=== PATIENT | female | born 1945 | race Caucasian/White ===

== ENCOUNTER → 2021-07-30 16:07 | Outpatient (BNVA) | payer MEDICARE, SELFPAY | PROVIDERS: Family Provider Electrodiagnostic Medicine; Visit Provider Registered Nurse Neonatal Intensive Care | DX: N39.0 Urinary tract infection, site not specified (principal) | CPT/HCPCS: 81000 ==

== ENCOUNTER → 2021-08-08 10:57 | Outpatient (BNVA) | payer MEDICARE, SELFPAY | PROVIDERS: Family Provider Electrodiagnostic Medicine; Visit Provider Registered Nurse Neonatal Intensive Care | DX: N39.0 Urinary tract infection, site not specified (principal) | CPT/HCPCS: 81000 ==

== ENCOUNTER → 2021-08-13 16:52 | Outpatient (BNVA) | payer MEDICARE, SELFPAY | PROVIDERS: Family Provider Electrodiagnostic Medicine; Visit Provider Registered Nurse Neonatal Intensive Care | DX: N39.0 Urinary tract infection, site not specified (principal) | CPT/HCPCS: 81000; 87086 ==

== ENCOUNTER 2023-12-07 11:32 | Emergency (ER) | payer MEDICARE, SELFPAY ==
[2023-12-07 11:51] VITALS: BP 128/67; PULSE 89; TEMP 36.8; O2SAT 98
[2023-12-07 13:25] LABS: Basophils # 0.1 10^3/uL (0.0-0.1); Basophils % 0.6 %; Eosinophils # 0.1 10^3/uL (0.0-0.8); Eosinophils % 0.8 %; Hematocrit 31.6 % (36-47); Lymphocytes # 1.4 10^3/uL (0.8-4.8); Lymphocytes % 17.6 %; Mean Corpuscular HGB Conc 30.4 g/dL (30-55); Mean Corpuscular Hemoglobin 24.2 pg (27-33); Mean Corpuscular Volume 79.6 fl (85-98); Monocytes # 0.8 10^3/uL (0.2-0.9); Monocytes % 10.5 %; Neutrophils # 5.57 10^3/uL (1.8-7.7); Neutrophils % 70.1 %; Nucleated Red Blood Cells % 0 %; Platelet Count 595 10^3/cmm (157-399); Red Blood Count 3.97 10^6/uL (3.85-5.65); Red Cell Distribution Width 16.7 % (12.1-15.1); White Blood Count 7.94 10^3/uL (3.29-11.43)
[2023-12-07 13:46] LABS: Alanine Aminotransferase 6 U/L (0-33); Albumin Level 3.8 g/dL (3.5-5.2); Alkaline Phosphatase 99 U/L (35-105); Anion Gap 19.1 (5-19); Aspartate Amino Transferase 12 U/L (0-32); Blood Urea Nitrogen 13 mg/dL (8-23); Carbon Dioxide 23 mmol/L (22-29); Chloride 97 mmol/L (98-107); Creatinine Clr Calc Pharmacy 60.9843; Globulin 3.4 g/dL (1.3-4.6); Glucose 100 mg/dL (65-115); Lipase 19 U/L (13-60); Osmolality Calculated 280 mOsm/kg (285-295); Potassium 4.1 mmol/L (3.5-5.1); Sodium 135 mmol/L (136-145); Total Bilirubin 0.3 mg/dL (0.15-1.2); Total Protein 7.2 g/dL (6.6-8.7)
--- NOTE | 2023-12-07 15:51 | ECG_ITS ---
[facility] Test Date: 2023-12-07 Pat Name: Ching Crenshaw Department: Room: Gender: Female Network Designer: : 1945 Requested By: Lelo Galvin Order Number: [id number] Juju MD: Brad Pennington M.D. Measurements Intervals [place] Rate: 92 P: 53 VA: 136 QRS: 15 QRSD: 118 T: -7 QT: 385 QTc: 477 Interpretive Statements SINUS RHYTHM INDETERMINATE AXIS RIGHT BUNDLE BRANCH BLOCK [120+ ms QRS DURATION, UPRIGHT V1, 40+ ms S IN I/aVL/V4/V5/V6] No previous ECG available for comparison Electronically Signed On 12-08-2023 7:44:26 CDT by Brad Pennington M.D. [email or web address]/store/NU/[id number] f
[2023-12-07 15:53] VITALS: BP 147/76; PULSE 65; RESP 21; O2SAT 99
--- NOTE | 2023-12-07 15:54 | XRR_ITS ---
PROCEDURE INFORMATION: Exam: XR Chest Exam date and time: 12/07/2023 4:26 PM Age: 78 years old Clinical indication: Cough; Patient HX: C/O n/v/d for the past few days. C/O upper abd/chest pain. PT denies any HX of abd issues. PT states she has not had much urine production. PT is a&o at this time with patent airway and even respirations. ; Additional info: Cp TECHNIQUE: Imaging protocol: Radiologic exam of the chest. Views: 1 view. COMPARISON: No relevant prior studies available. FINDINGS: Lungs: Unremarkable. No consolidation. Pleural spaces: Trace right pleural effusion. No pneumothorax is identified. Heart/Mediastinum: Heart size is normal. There is calcified plaque involving the aorta. The aorta appears to be somewhat tortuous. Bones/joints: Unremarkable. XR/XR chest 1V portable [id number] IMPRESSION: 1. Trace right pleural effusion.
[2023-12-07] MEDS: ondansetron 2 mg/ML SDV 2 mL 4 MG IVP (16:01)
[2023-12-07] MEDS: sodium chloride 0.9% 1,000 ML 999 ML IV (16:02)
--- NOTE | 2023-12-07 16:09 | ED_ITS ---
HPI - Nausea/Vomiting/Diarrhea 2 General: Chief complaint: Nausea/Vomiting/Diarrhea Stated complaint: d,n,v Time Seen by Provider: 12/07/23 15:47 Source: patient Mode of arrival: ambulatory Limitations: no limitations History of Present Illness: 78-year-old female who states that she h as been having left lower quadrant abdominal pain along with nausea vomiting diarrhea since yesterday she states she has had a fever at home as well. She has had some pain in her chest that happened after the vomiting denies any severe pain currently. States her main pain is in her lower abdomen she rates it a 4 out of 10. Associated nausea: Yes Associated symtoms: Reports chest pain and nausea; Denies dysuria or headache(s) Related Data Previous Rx's Medication Instructions Recorded sulfamethoxazole 800 1 tab PO BID 5 days #10 tabs 08/08/21 mg-trimethoprim 160 mg tablet (Bactrim DS) ciprofloxacin HCl 250 mg tablet 250 mg PO BID 3 days #6 tabs 08/13/21 Allergies Allergy/AdvReac Type Severity Reaction Status Date / Time aspartame Allergy Unknown Verified 12/07/23 11:54 Review of Systems 2 Const: Denies: fever(s), chills, body aches or change in appetite ENMT: Denies: throat pain or dental pain Card: Reports: chest pain Resp: Denies: dyspnea GI: Reports: abdominal pain, nausea, vomiting and diarrhea : Denies: dysuria Musc: Denies: neck pain or back pain Skin/Breast: Denies: rash Neuro: Denies: headache(s) Physical Exam 2 Const: COMMON NORMALS: patient oriented x3 HENMT: COMMON NORMALS: normocephalic and atraumatic HEAD & SCALP: n ormocephalic and atraumatic Eye: COMMON NORMALS: Equal, round and reactive pupils present and EOMs intact bilaterally PUPIL: Yes Equal, round and reactive pupils present Neck/C-Spine: COMMON NORMALS: full ROM and supple Chest: COMMONS NORMALS: normal inspection of the chest Resp: COMMON NORMALS: normal respiratory effort, No retractions, No use of accessory muscles and clear to auscultation bilaterally AUSCULTATION: clear to auscultation bilaterally Cardio: COMMON NORMALS: regular rate, regular rhythm and No murmurs present (Cardio) RATE: regular rate RHYTHM: regular rhythm GI: COMMON NORMALS: Normal to inspection, nondistended, normoactive bowel sounds present, Soft to palpation and no masses PALPATION: Yes Soft to palpation and Yes Tenderness to palpation present (GI) Details: LLQ Extremity: COMMON NORMALS: normal to inspection and full ROM Neuro: COMMON NORMALS: patient oriented x3, moves all extremities and no focal motor deficits Psych: COMMON NORMALS: mental status grossly normal, Normal thought process present and cooperative THOUGHT PROCESS: Normal thought process present Skin: COMMON NORMALS: no rashes or lesions noted and no wounds GENERAL SKIN EXAM: no rashes or lesions noted Course 2 Vital Signs: Vital signs: Vital Signs Temperature 98.2 F 12/07/23 11:51 Pulse Rate 82 12/07/23 17:59 Respiratory Rate 16 12/07/23 17:59 Blood Pressure 131/77 12/07/23 17:59 Pulse Oximetry 94 12/07/23 17:59 Oxygen Delivery Me thod Room Air 12/07/23 17:26 MDM - Nausea/Vomiting/Diarrhea Medical Decision Making Patient presents with vomiting along with diarrhea her CT scan did show an colon mass I informed her that she wants to get outpatient follow-up we will place patient follow-up with surgery needs outpatient colonoscopy she is return if worsening she understands agrees plan Medical Records I reviewed the patient's medical records. Lab Data I reviewed the patient's lab results. 12/07/23 13:06 12/07/23 13:06 Radiology Impressions Chest CTA 12/07/23 16:28 IMPRESSION: 1. No evidence of PE or acute aortic abnormality. 2. Findings suspicious for an esophageal mass. GI evaluation and upper endoscopy is recommended. 3. Small right-sided pleural effusion. ADDENDUM: 12/07/23 180 The findings were verbally communicated by telephone with Dr. MUSE at 6:02 PM CDT on 12/07/2023. Abdomen/Pelvis CT 12/07/23 17:28 IMPRESSION: 1. Colonic mass. 2. Findings raising the question of low-grade partial upstream obstruction of the small bowel related to the mass. 3. Questionable endometrial thickening. Consider follow-up outpatient tour conductor evaluation and pelvic sonography. The findings were verbally communicated by telephone with Dr. MUSE at 6:02 PM CDT on 12/07/2023. Laboratory Results WBC 7.94 10^3/uL (3.29-11.43) 12/07/23 13:06 RBC 3.97 10^6/uL (3.85-5.65) 12/07/23 13:06 Hgb 9.60 g/dL (11.27-16.99) L 12/07/23 13:06 Hct 31.6 % (36-47) L 12/07/23 13:06 MCV 79.6 fl (85-98) L 12/07/23 13:06 MCH 24.2 pg (27-33) L 12/07/23 13:06 MCHC 30.4 g/dL (30-55) 12/07/23 13:06 RDW 16.7 % (12.1-15.1) H 12/07/23 13:06 Plt Count 595 10^3/cmm (157-399) H 12/07/23 13:06 MPV 10.0 fL (7.4-10.4) 12/07/23 13:06 Neut % (Auto) 70.1 % 12/07/23 13:06 Lymph % (Auto) 17.6 % 12/07/23 13:06 Brooks % (Auto) 10.5 % 12/07/23 13:06 Eos % (Auto) 0.8 % 12/07/23 13:06 Baso % (Auto) 0.6 % 12/07/23 13:06 Neut # (Auto) 5.57 10^3/uL (1.8-7.7) 12/07/23 13:06 Lymph # (Auto) 1.4 10^3/uL (0.8-4.8) 12/07/23 13:06 Brooks # (Auto) 0.8 10^3/uL (0.2-0.9) 12/07/23 13:06 Eos # (Auto) 0.1 10^3/uL (0.0-0.8) 12/07/23 13:06 Baso # (Auto) 0.1 10^3/uL (0.0-0.1) 12/07/23 13:06 Nucleated RBC % (auto) 0 % 12/07/23 13:06 Nucleated RBCs # 0.0 /100WBC 12/07/23 13:06 Sodium 135 mmol/L (136-145) L 12/07/23 13:06 Potassium 4.1 mmol/L (3.5-5.1) 12/07/23 13:06 Chloride 97 mmol/L (98-107) L 12/07/23 13:06 Carbon Dioxide 23 mmol/L (22-29) 12/07/23 13:06 Anion Gap 19.1 (5-19) H 12/07/23 13:06 BUN 13 mg/dL (8-23) 12/07/23 13:06 Creatinine 0.6 mg/dL (0.5-0.9) 12/07/23 13:06 GFR Calculation Not Reportable 12/07/23 13:06 Glucose 100 mg/dL (65-115) 12/07/23 13:06 Calculated Osmolality 280 mOsm/kg (285-295) L 12/07/23 13:06 Calcium 9.0 mg/dL (8.5-10.5) 12/07/23 13:06 Total Bilirubin 0.3 mg/dL (0.15-1.2) 12/07/23 13:06 AST 12 U/L (0-32) 12/07/23 13:06 ALT 6 U/L (0-33) 12/07/23 13:06 Alkaline Phosphatase 99 U/L (35-105) 12/07/23 13:06 Troponin T Baseline 9 ng/L (0-10) 12/07/23 13:06 Troponin T 120 Minute 8.10 ng/L (0-10) 12/07/23 16:11 Delta Troponin T -0.90 ABS# (0-10) L 12/07/23 16:11 Total Protein 7.2 g/dL (6.6-8.7) 12/07/23 13:06 Albumin 3.8 g/dL (3.5-5.2) 12/07/23 13:06 Globulin 3.4 g/dL (1.3-4.6) 12/07/23 13:06 Lipase 19 U/L (13-60) 12/07/23 13:06 Urine Color Yellow (Yellow) 12/07/23 16:52 Urine Appearance Clear (CLEAR) 12/07/23 16:52 Urine pH 6.0 (5-7) 12/07/23 16:52 Ur Specific [place] 1.005 (1.005-1.030) 12/07/23 16:52 Urine Protein Negative (Negative) 12/07/23 16:52 Urine Glucose (UA) Negative (Normal) 12/07/23 16:52 Urine Ketones 2+ (Negative) H 12/07/23 16:52 Urine Blood Negative (Negative) 12/07/23 16:52 Urine Nitrate Negative (Negative) 12/07/23 16:52 Urine Bilirubin Negative (Negative) 12/07/23 16:52 Urine Urobilinogen 0.2 mg/dL (Negative) 12/07/23 16:52 Ur Leukocyte Esterase Trace (Negative) A 12/07/23 16:52 Urine RBC 0-2 /hpf (0-2) 12/07/23 16:52 Urine WBC 0-5 /hpf (0-5) 12/07/23 16:52 Ur Squamous Epith Cells 0-5 /hpf (0-5) 12/07/23 16:52 Amorphous Sediment Not Reportable 12/07/23 16:52 Urine Bacteria None seen /hpf (NONE) 12/07/23 16:52 Hyaline Casts 0.40 /lpf 12/07/23 16:52 All radiology interpretation(s) finalized by discharge Discharge Plan Discharge Patient Disposition: Home Clinical Impression: Colonic mass, Diarrhea Condition: Stable Prescriptions: No Action sulfamethoxazole-trimethoprim [Bactrim DS] 800-160 mg tablet 1 tab PO BID 5 Days Qty: 10 0RF ciprofloxacin HCl 250 mg tablet 250 mg PO BID 3 Days Qty: 6 0RF Discharge Orders: Discharge ED (Routine); Ordered 12/07/23 Ordered By: Lelo Muse Referrals: Bradley Washington MD [Physician] - 1-3 days Lorraine Osuna MD [Primary Care Provider] - Discharge Diet: Advance as tolerated Discharge Activity: Resume usual activity Patient Instructions: Acute Diarrhea (ED) Coding Level of Care Code ED Environmental Services Supervisor for Robert Bills
--- NOTE | 2023-12-07 16:28 | CTR_ITS ---
PROCEDURE INFORMATION: Exam: CTA Chest With Contrast Exam date and time: 12/07/2023 5:04 PM Age: 78 years old Clinical indication: Angina; Additional info: Cp TECHNIQUE: Imaging protocol: Computed tomographic angiography of the chest with contrast. Exam focused on the arteries. 3D rendering (Not supervised by radiologist): MIP and/or 3D reconstructed images were created by the technologist. Radiation optimization: All CT scans at this facility use at least one of these dose optimization techniques: automated exposure control; mA and/or kV adjustment per patient size (includes targeted exams where dose is matched to clinical indication); or iterative reconstruction. Contrast material: OMNI 350; Contrast volume: 60 ml; Contrast route: INTRAVENOUS (IV); COMPARISON: CR XR chest 1V portable [id number] 12/07/2023 4:26 PM RADIATION DOSE METRICS: Total DLP (mGy-cm): 276 FINDINGS: Pulmonary arteries: No evidence of pulmonary thromboembolism. Aorta: No evidence of aneurysmal dilatation or dissection of the thoracic aorta. Thyroid: Grossly unremarkable. Lungs: No focal consolidation. No evidence of pneumonia. Medial right upper lobe pulmonary cyst noted. Pleural spaces: Small right-sided pleural effusion. No pneumothorax. Heart: No cardiomegaly. No pericardial effusion. There is mild mass effect of the left atrium. Mediastinal space: Moderate hiatal hernia with the GE junction and a portion of the gastric body above the diaphragm. There is wall thickening of the mid-distal esophagus, particularly just proximal to the GE junction concerning for neoplasm. There are adjacent paraesophageal nodes measuring up to 9 mm short axis. Lymph nodes: There is paraesophageal adenopathy. No hilar adenopathy. Bones/joints: No evidence of acute fracture or aggressive osseous lesion. Soft tissues: No evidence of fluid collection or hematoma in the superficial soft tissues. Other findings: No evidence of acute abnormality in the upper abdomen. CT/CT angio chest PE protcl [id number] IMPRESSION: 1. No evidence of PE or acute aortic abnormality. 2. Findings suspicious for an esophageal mass. GI evaluation and upper endoscopy is recommended. 3. Small right-sided pleural effusion.
[2023-12-07 16:53] VITALS: BP 157/79; PULSE 86; RESP 21; O2SAT 96
[2023-12-07 16:54] LABS: Troponin(5th) Baseline 9 ng/L (0-10)
[2023-12-07 17:00] LABS: Charge for UA Resulting for Rev
[2023-12-07 17:03] LABS: Bilirubin Urine Negative (Negative); Blood Urine Negative (Negative); Glucose Urine UA Negative (Normal); Ketones Urine 2+ (Negative); Leukocyte Esterase Urine Trace (Negative); Nitrate Urine Negative (Negative); Protein Urine Negative (Negative); Specific Gravity, Urine 1.005 (1.005-1.030); Urine Appearance Clear (CLEAR); Urine Color Yellow (Yellow); Urobilinogen Urine 0.2 mg/dL (Negative)
--- NOTE | 2023-12-07 17:03 | PC.NURSE ---
Patient c/o acid reflux and states that it is just getting worse. Spoke with dr wynne and verbal order for Gi cocktail given. rbvo and placed.
[2023-12-07 17:06] LABS: Bacteria Urine None Seen /hpf; RBC Urine 0-2 /hpf (0-2); Squamous Epithelial Cell Urine 0-5 /hpf (0-5); WBC Urine 0-5 /hpf (0-5)
[2023-12-07] MEDS: iohexol 350 mg/mL 500 mL Btl (per mL) IV ×2 (17:15→17:40)
[2023-12-07] MEDS: lidocaine 2% viscous 15 ML, aluminum-mag hydrox-simethicon 30 ML, sucralfate oral liq 1 GM PO (17:24)
[2023-12-07 17:26] VITALS: BP 157/79; PULSE 85; RESP 18; O2SAT 94
--- NOTE | 2023-12-07 17:28 | CTR_ITS ---
PROCEDURE INFORMATION: Exam: CT Abdomen And Pelvis With Contrast Exam date and time: 12/07/2023 5:38 PM Age: 78 years old Clinical indication: Abdominal pain; Additional info: Abd pain TECHNIQUE: Imaging protocol: Computed tomography of the abdomen and pelvis with contrast. Radiation optimization: All CT scans at this facility use at least one of these dose optimization techniques: automated exposure control; mA and/or kV adjustment per patient size (includes targeted exams where dose is matched to clinical indication); or iterative reconstruction. Contrast material: OMNI 350; Contrast volume: 100 ml; Contrast route: INTRAVENOUS (IV); COMPARISON: CT angio chest PE protcl [id number] 12/07/2023 5:04 PM RADIATION DOSE METRICS: Total DLP (mGy-cm): 487 FINDINGS: Lungs: Please see separate report of concurrent CT of the chest for findings above the diaphragm. Diaphragm: Moderate hiatal hernia with the GE junction and a portion of the gastric body above the diaphragm. Liver: Hepatic steatosis. No evidence of focal hepatic lesion. Gallbladder and biliary ducts: Unremarkable. No intra-hepatic or extra-hepatic biliary dilatation. Pancreas: Unremarkable. Spleen: Unremarkable. Adrenal glands: Unremarkable. Kidneys and ureters: There is a simple appearing right-sided renal cyst for which dedicated imaging follow-up is not required. Otherwise no evidence of renal parenchymal abnormality. No hydronephrosis or ureteral stone. Stomach and bowel: There is an ascending colonic mass measuring approximately 6 cm in length with severe narrowing at its distal aspect increasing risk for subsequent development of high-grade obstruction. There are few loops of prominent small bowel measuring up to 2.3 cm with scattered air-fluid levels which may reflect low-grade partial obstruction related to the mass. Appendix: Normal appendix. Intraperitoneal space: Small pelvic free fluid. No evidence of free air or fluid collection. Vasculature: Mild aortobiiliac atherosclerosis without aneurysmal dilatation or dissection. The celiac trunk, SMA and MARTHA are grossly patent. No evidence of IVC thrombus. The portal vein, SMV and splenic veins are grossly patent. Lymph nodes: There are few prominent and mildly enlarged regional pericolonic nodes in the right hemiabdomen measuring up to 6 mm short axis. Additional small 5 mm short axis retrocrural node. No bulky adenopathy. Urinary bladder: Grossly unremarkable. Reproductive: Calcified uterine fibroid noted. Questionable endometrial thickening. Bones/joints: No evidence of acute fracture or aggressive osseous lesion. Soft tissues: No evidence of fluid collection or hematoma in the superficial soft tissues. CT/CT abdomen pelvis w con* [id number] IMPRESSION: 1. Colonic mass. 2. Findings raising the question of low-grade partial upstream obstruction of the small bowel related to the mass. 3. Questionable endometrial thickening. Consider follow-up outpatient insole reinforcer evaluation and pelvic sonography. The findings were verbally communicated by telephone with Dr. MUSE at 6:02 PM CDT on 12/07/2023.
[2023-12-07 17:59] VITALS: BP 131/77; PULSE 82; RESP 16; O2SAT 94
--- NOTE | 2023-12-07 17:59 | ECG_ITS ---
[facility] Test Date: 2023-12-07 Pat Name: Ching Crenshaw Department: Room: Gender: Female Manager Center: : 1945 Requested By: Lelo Galvin Order Number: [id number] Juju MD: Brad Pennington M.D. Measurements Intervals [place] Rate: 78 P: 66 NV: 162 QRS: 56 QRSD: 117 T: 21 QT: 408 QTc: 465 Interpretive Statements SINUS RHYTHM INDETERMINATE AXIS RIGHT BUNDLE BRANCH BLOCK [120+ ms QRS DURATION, UPRIGHT V1, 40+ ms S IN I/aVL/V4/V5/V6] Compared to ECG 12/07/2023 11:46:02 No significant changes Electronically Signed On 12-08-2023 7:53:17 CDT by Brad Pennington M.D. [email or web address]/store/OM/[id number]
[2023-12-07 18:46] VITALS: BP 145/66; PULSE 64; O2SAT 91
--- NOTE | 2023-12-08 08:34 | DCPLANNER ---
Message sent to General Surgery for follow up.
== END 2023-12-07 18:48 | disposition home or self-care (01) ==
PROVIDERS: Emergency Provider Emergency Medicine; PCP Family Medicine
DX: K63.9 Disease of intestine, unspecified (principal); R19.7 Diarrhea, unspecified
CPT/HCPCS: 36415; 71045; 71275; 74177; 80053; 81003; 81015; 83690; 84484; 85025; 93005; 96361; 96374; 99285; J2405; J7030

== ENCOUNTER → 2023-12-08 14:55 | Outpatient (BNVA) | payer MEDICARE, SELFPAY | PROVIDERS: PCP Family Medicine; Referring Provider Emergency Medicine; Visit Provider Student in an Organized Health Care Education/Training Program | DX: K63.89 Other specified diseases of intestine (principal) | CPT/HCPCS: 99204 ==

== ENCOUNTER 2024-01-04 06:39 | Day surgery (SDC) | payer MEDICARE, SELFPAY ==
[2024-01-04 06:59] VITALS: BP 99/52; PULSE 84; RESP 18; TEMP 36.7; O2SAT 97; BMI 22.8
[2024-01-04] MEDS: sodium chloride 0.9% 1,000 ML 30 ML IV (07:15)
--- NOTE | 2024-01-04 07:16 | ANES.PREANE2 ---
Pre-Anesthetic Assessment Height/Weight: Height 1.63 m Weight 60.328 kg Temp Pulse Resp BP Pulse Ox O2 Del Method 98.0 F 84 18 99/52 97 Room Air 01/04/24 06:59 01/04/24 06:59 01/04/24 06:59 01/04/24 06:59 01/04/24 06:59 01/04/24 06:59 Preop Diagnosis: vomiting diarrhea Operation Date: 01/04/24 07:40 Proposed Procedures p EGD - 59861, 88828, G0105, K63.89, K22..89(Not Applicable) - Bradley Washington MD s Colonoscopy(Not Applicable) - Bradley Washington MD Familial anesthetic complications: none Was Beta Rianna taken within 24 hours: N/A Was Clonidine taken within 24 hours: N/A Last intake: Intake Last Liquid Date 01/03/24 Last Liquid Time 20:00 Last Solid Date 01/02/24 Last Solid Time 14:00 Social No alcohol and No tobacco Exam alert, oriented x 3, clear to auscultation bilaterally and regular rate & rhythm Airway Submandibular: within normal limits Cervical ROM: within normal limits Mallampati: Class II Dentition: false History/ROS No significant history except as noted and No significant complaints Pulmonary None reported CV/HEM None reported None reported Hepatic None reported GI Gastroesophageal Reflux Disease Metabolic None reported Musc/skel None reported Neuropsych None reported Anesthetic Plan ASA status: 2 Anesthesia: MAC Risk of > 500 ml blood loss (7ml/kg in children): Yes, adequate IV access and fluids planned Medications/Allergies Home Medications Medication Instructions Recorded Confirmed Last Taken Type No Known Home Medications 12/31/23 12/31/23 Unknown History Allergies Allergy/AdvReac Type Severity Reaction Status Date / Time aspartame Allergy Unknown Verified 12/31/23 08:11 Current Medications Generic Name Dose Route Start Last Admin Trade Name Freq PRN Reason Stop Dose Admin Sodium Chloride 1,000 mls @ 30 mls/hr 01/04/24 07:00 01/04/24 07:15 Sodium Chloride 0.9% IV 30 mls/hr .Q24H MAYRA Administration PFSH Anesthesia Social History Smoking and tobacco/nicotine status: never used tobacco/nicotine Data Anesthesia Cardiac Studies: No Data to Display
--- NOTE | 2024-01-04 07:42 | W.PM.OPSUD ---
Surgery/Procedure H&P Update DATE OF PROCEDURE: January 04, 2024 DATE H&P PERFORMED: 12/08/23 H&P UPDATE INFORMATION: I have reviewed H&P completed within last 30 days, I have examined patient prior to procedure and No changes to prior documentation PREOP DIAGNOSIS: vomiting diarrhea PLANNED PROCEDURE: Operation Date: 01/04/24 07:40 Proposed Procedures p EGD - 84956, 63949, G0105, K63.89, K22..89(Not Applicable) - Bradley Washington MD s Colonoscopy(Not Applicable) - Bradley Washington MD
[2024-01-04 08:24] VITALS: BP 113/59; PULSE 70; RESP 18; TEMP 36.1; O2SAT 94
[2024-01-04 08:30] VITALS: BP 123/65; PULSE 71; RESP 18; O2SAT 95
[2024-01-04 08:40] VITALS: BP 140/74; PULSE 63; RESP 18; O2SAT 96
[2024-01-04 08:50] VITALS: BP 132/65; PULSE 63; RESP 18; O2SAT 95
--- NOTE | 2024-01-04 09:40 | ANE.PACU2 ---
Inpatient post-anesthesia follow up: Airway intact: Yes Vital signs: Temperature 97.0 F Pulse Rate 63 Respiratory Rate 18 Blood Pressure 132/65 Pulse Oximetry 95 Oxygen Delivery Me thod Room Air Oxygen Flow Rate Fraction of Inspir ed Oxygen Hydration adequate: Yes Nausea and vomiting: No Pain level: 1 Mental status: Baseline
[2024-01-06 13:44] LABS: Mismatch Repari Proteins-IHC See Report
== END 2024-01-04 09:40 | disposition home or self-care (01) ==
PROVIDERS: PCP Electrodiagnostic Medicine; Visit Provider Student in an Organized Health Care Education/Training Program
PROC: 0DJ08ZZ Inspection of Upper Intestinal Tract, Via Natural or Artificial Opening Endoscopic (ICD-10-PCS; CPT 43235; principal; 2024-01-04 07:40)
PROC: 0DJD8ZZ Inspection of Lower Intestinal Tract, Via Natural or Artificial Opening Endoscopic (ICD-10-PCS; CPT 45378; 2024-01-04 07:40)
DX: C18.2 Malignant neoplasm of ascending colon (principal); R19.7 Diarrhea, unspecified; K63.89 Other specified diseases of intestine; K22.89 Other specified disease of esophagus; K29.50 Unspecified chronic gastritis without bleeding; K21.00 Gastro-esophageal reflux disease with esophagitis, without bleeding; K44.9 Diaphragmatic hernia without obstruction or gangrene
CPT/HCPCS: 43239; 45380; 45381; 88305; 88312; 88341; 88342; J2704; J7030

== ENCOUNTER → 2024-01-19 10:35 | Outpatient (BNVA) | payer MEDICARE, SELFPAY | PROVIDERS: PCP Electrodiagnostic Medicine; Visit Provider Student in an Organized Health Care Education/Training Program | DX: Z09 Encounter for follow-up examination after completed treatment for conditions other than malignant neoplasm (principal) | CPT/HCPCS: 99204; 99213 ==

== ENCOUNTER 2024-01-21 07:44 | Oncology outpatient (recurring) (ONCR) | payer MEDICARE, SELFPAY ==
[2024-01-21 08:11] LABS: Basophils # 0.1 10^3/uL (0.0-0.1); Basophils % 1.4 %; Eosinophils # 0.3 10^3/uL (0.0-0.8); Eosinophils % 5.4 %; Hematocrit 26.5 % (36-47); Lymphocytes # 1.6 10^3/uL (0.8-4.8); Lymphocytes % 27.4 %; Mean Corpuscular HGB Conc 29.8 g/dL (30-55); Mean Corpuscular Hemoglobin 23.3 pg (27-33); Mean Corpuscular Volume 78.2 fl (85-98); Mean Platelet Volume 8.9 fL (7.4-10.4); Monocytes # 0.5 10^3/uL (0.2-0.9); Monocytes % 8.7 %; Neutrophils # 3.29 10^3/uL (1.8-7.7); Neutrophils % 56.9 %; Nucleated Red Blood Cells % 0 %; Platelet Count 610 10^3/cmm (157-399); Red Blood Count 3.39 10^6/uL (3.85-5.65); Red Cell Distribution Width 18.3 % (12.1-15.1); White Blood Count 5.77 10^3/uL (3.29-11.43)
[2024-01-21 08:49] LABS: Alanine Aminotransferase < 5 U/L (0-33); Albumin Level 3.3 g/dL (3.5-5.2); Alkaline Phosphatase 103 U/L (35-105); Anion Gap 14.2 (5-19); Aspartate Amino Transferase 10 U/L (0-32); Blood Urea Nitrogen 10 mg/dL (8-23); Carbon Dioxide 26 mmol/L (22-29); Chloride 102 mmol/L (98-107); Creatinine Clr Calc Pharmacy 53.1016; Globulin 2.8 g/dL (1.3-4.6); Glucose 99 mg/dL (65-115); Lactate Dehydrogenase 119 U/L (135-214); Osmolality Calculated 285 mOsm/kg (285-295); Potassium 4.2 mmol/L (3.5-5.1); Sodium 138 mmol/L (136-145); Total Bilirubin 0.2 mg/dL (0.15-1.2); Total Protein 6.1 g/dL (6.6-8.7)
== END 2024-01-28 23:59 | disposition home or self-care (01) ==
PROVIDERS: PCP Electrodiagnostic Medicine; Visit Provider Internal Medicine Hematology & Oncology
DX: C18.2 Malignant neoplasm of ascending colon (principal); D25.9 Leiomyoma of uterus, unspecified
CPT/HCPCS: 36415; 80053; 82378; 83615; 85025; 99204

== ENCOUNTER 2024-03-04 08:00 | Oncology outpatient (recurring) (ONCR) | payer MEDICARE, SELFPAY ==
[2024-03-03 11:50] LABS: Basophils # 0.1 10^3/uL (0.0-0.1); Basophils % 1.6 %; Eosinophils # 0.1 10^3/uL (0.0-0.8); Eosinophils % 2.4 %; Hematocrit 26.9 % (36-47); Lymphocytes # 1.6 10^3/uL (0.8-4.8); Lymphocytes % 36.4 %; Mean Corpuscular HGB Conc 30.1 g/dL (30-55); Mean Corpuscular Hemoglobin 24.4 pg (27-33); Mean Platelet Volume 9.3 fL (7.4-10.4); Monocytes # 0.5 10^3/uL (0.2-0.9); Neutrophils # 2.22 10^3/uL (1.8-7.7); Neutrophils % 49.4 %; Nucleated Red Blood Cells % 0 %; Platelet Count 667 10^3/cmm (157-399); Red Blood Count 3.32 10^6/uL (3.85-5.65); Red Cell Distribution Width 19.2 % (12.1-15.1)
[2024-03-03 12:17] LABS: Alanine Aminotransferase 8 U/L (0-33); Albumin Level 3.5 g/dL (3.5-5.2); Alkaline Phosphatase 73 U/L (35-105); Aspartate Amino Transferase 19 U/L (0-32); Chloride 105 mmol/L (98-107); Potassium 4.9 mmol/L (3.5-5.1); Sodium 140 mmol/L (136-145)
[2024-03-03 12:34] LABS: Anion Gap 15.9 (5-19); Blood Urea Nitrogen 14 mg/dL (8-23); Calcium 8.8 mg/dL (8.5-10.5); Carbon Dioxide 24 mmol/L (22-29); Creatinine Clr Calc Pharmacy 53.2731; Globulin 3.2 g/dL (1.3-4.6); Glucose 109 mg/dL (65-115); Lactate Dehydrogenase 142 U/L (135-214); Osmolality Calculated 291 mOsm/kg (285-295); Total Bilirubin 0.2 mg/dL (0.15-1.2); Total Protein 6.7 g/dL (6.6-8.7)
[2024-03-03 14:32] LABS: Carcinoembryonic Antigen 1.5 ng/mL (0.0-4.7)
[2024-03-03 14:51] LABS: Ferritin 198 ng/mL (15-150); Iron 16 ug/dL (37-145); Percent Saturation 4.6 % (20-50); Total Iron Binding Capacity 346 mcg/dl; Unsaturated Iron Binding 330 ug/dL (112-347)
[2024-03-03 15:13] LABS: Folate Level 12.3 ng/mL (4.8-37.3)
[2024-03-03] MEDS: acetaminophen 325 mg Tablet 650 MG PO (15:20)
[2024-03-03] MEDS: diphenhydrAMINE 25 mg Capsule PO (15:20)
[2024-03-03] MEDS: sodium chloride 0.9% 250 mL Bag IV (15:20)
[2024-03-03 15:37] VITALS: BP 119/73; PULSE 81; RESP 18; TEMP 37.3; O2SAT 98
[2024-03-03 15:45] VITALS: BP 119/73; PULSE 81; RESP 18; TEMP 37.3; O2SAT 96
[2024-03-03 16:00] VITALS: BP 122/66; PULSE 85; RESP 18; TEMP 37.4; O2SAT 98
[2024-03-03 16:15] VITALS: BP 119/70; PULSE 79; RESP 18; TEMP 36.8; O2SAT 98
[2024-03-03 16:45] VITALS: BP 120/72; PULSE 78; RESP 18; TEMP 36.7; O2SAT 97
[2024-03-03 18:00] VITALS: BP 120/78; BP 124/78; PULSE 76; PULSE 78; RESP 18; TEMP 36.2; TEMP 36.4; O2SAT 98
[2024-03-04] VITALS (7 sets, daily range): BP systolic 110–131; BP diastolic 62–74; PULSE 62–76; RESP 15–17; TEMP 36.7–37.1; O2SAT 98–99
[2024-03-04] MEDS: acetaminophen 325 mg Tablet 650 MG PO (08:13)
[2024-03-04] MEDS: diphenhydrAMINE 25 mg Capsule PO (08:13)
[2024-03-04] MEDS: sodium chloride 0.9% (100 ml) 100 ML 50 ML (08:36)
[2024-03-18] MEDS: iohexol 350 mg/mL 500 mL Btl (per mL) IV (09:26)
[2024-03-18] MEDS: iohexol 350 mg/mL 500 mL Btl (per mL) PO (09:26)
--- NOTE | 2024-03-18 09:30 | CT_ITS ---
WS: [id number] CT CHEST, ABDOMEN AND PELVIS WITH CONTRAST HISTORY: colon cancer staging uterine mass TECHNIQUE: Contiguous 5 mm axial imaging performed through the chest, abdomen and pelvis IV contrast, oral contrast has been provided. Coronal and sagittal reformats chest. Coronal and sagittal reformat s through the abdomen and pelvis. All CT scans at [facility] use at least one of these dose o ptimization techniques: automated exposure control; mA and/or kV adjustment per patient size (include s targeted exams where dose is matched to clinical indication); or iterative reconstruction. CONTRAST: Omnipaque 350; 100 mL IV. DLP: 276.63 mGy.cm COMPARISON: 12/07/[address]: Abdomen CT: Pelvic CT: CT/CT chest abdpel w/*[id number] IMPRESSION:
== END 2024-03-29 23:59 | disposition home or self-care (01) ==
PROVIDERS: Internal Medicine Hematology & Oncology; PCP Electrodiagnostic Medicine; Visit Provider Nurse Practitioner
DX: Z79.899 Other long term (current) drug therapy (principal); D64.9 Anemia, unspecified; Z53.9 Procedure and treatment not carried out, unspecified reason
CPT/HCPCS: 36415; 36430; 71260; 74177; 76856; 80053; 82378; 82728; 82746; 83540; 83550; 83615; 85025; 86850; 86900; 86920; 99214; J7050; P9016

== ENCOUNTER 2024-03-24 09:32 | Outpatient (CLI) | payer MEDICARE, SELFPAY ==
[2024-03-24] MEDS: iohexol 350 mg/mL 500 mL Btl (per mL) IV (10:24)
--- NOTE | 2024-03-24 11:24 | CT_ITS ---
WS: [id number] CT CHEST, ABDOMEN AND PELVIS WITH CONTRAST HISTORY: RESTAGING COLON CANCER TECHNIQUE: Contiguous 5 mm axial imaging performed through the chest, abdomen and pelvis with IV cont rast, oral contrast has been provided. Coronal and sagittal reformats chest. Coronal and sagittal ref ormats through the abdomen and pelvis. All CT scans at [facility] use at least one of these d ose optimization techniques: automated exposure control; mA and/or kV adjustment per patient size (in cludes targeted exams where dose is matched to clinical indication); or iterative reconstruction. CONTRAST: Omnipaque 350; 100 mL IV. DLP: 479 mGy COMPARISON: 12/07/[address]: Lungs are clear and well-aerated. No pulmonary mass, nodule or pneumonia. Normal size aorta and pulmonary artery. No mediastinal or hilar adenopathy. Heart size is normal. Small hiatal hernia. Mild increase in thoracic kyphosis. No destructive rib lesions. Abdomen CT: Mild hepatomegaly. No metastatic disease in the liver. Normal gallbladder and spleen. Nor mal pancreas and adrenal glands. Large RIGHT central parapelvic cysts. There is no obstruction of the RIGHT kidney. LEFT kidney is normal. Mild atherosclerotic plaque abdominal aorta. No mesenteric kayla ry thrombosis. Ventral abdominal wall recent incision with no complications. No fluid collections or abscess associa sam with the abdominal wall incision site. Patient is status post RIGHT hemicolectomy for neoplasm previously described on 12/07/2023. No residual or recurrent mass is noted at the anastomotic site. No collection such as abscess or seroma. Stomach is moderately distended with oral contrast. No small bowel obstruction. Diffuse moderate constipatio n in the distal colon. There are a few mesenteric lymph nodes which do not appear to be significantly enlarged. Pelvic CT: No free fluid. Urinary bladder is well distended. Uterus is slightly enlarged and antevert ed. Coarse calcification in the uterine body is probably a calcified fibroid. CT/CT chest abdpel w/*[id number] IMPRESSION: 1. Status post RIGHT hemicolectomy since the prior study of 12/07/2023. 2. Anastomotic site appears intact. No recurrent tumor. There are a few small mesenteric lymph nodes which are subcentimeter. 3. No ascites or abscess. 4. Mild hepatomegaly. 5. No metastatic lesions in the lungs or adrenal glands or liver. 6. Fibroid uterus.
== END 2024-03-24 09:33 | disposition home or self-care (01) ==
PROVIDERS: PCP Electrodiagnostic Medicine; Visit Provider Nurse Practitioner
DX: C18.2 Malignant neoplasm of ascending colon (principal); K44.9 Diaphragmatic hernia without obstruction or gangrene; K59.00 Constipation, unspecified; D25.9 Leiomyoma of uterus, unspecified; Z90.49 Acquired absence of other specified parts of digestive tract
CPT/HCPCS: 71260; 74177

== ENCOUNTER 2024-04-06 11:18 | Emergency (ER) | payer MEDICARE, SELFPAY ==
[2024-04-06 11:59] VITALS: BP 156/74; PULSE 75; RESP 18; TEMP 36.6; O2SAT 97
--- NOTE | 2024-04-06 12:29 | CT_ITS ---
WS: [id number] CT CERVICAL SPINE HISTORY: fall TECHNIQUE: Contiguous 2.0 mm axial imaging performed through the entire cervical spine. Sagittal and coronal reformats also performed. All CT scans at [facility] use at least one of these dose o ptimization techniques: automated exposure control; mA and/or kV adjustment per patient size (include s targeted exams where dose is matched to clinical indication); or iterative reconstruction. DLP: 141.87 mGy.cm COMPARISON: None available. Increase in the cervical lordosis. Slight retrolisthesis of C4 and C5. No fractures. Facet joints are normally aligned. Lateral masses are aligned. Odontoid is intact. C2-C3: Normal. C3-C4: Normal. C4-C5: Facet joint arthritis. Mild encroachment upon the ventral thecal sac by osteophytes. Mild cent ral with moderate bilateral foraminal stenosis. C5-C6: Osteophytic ridging with a central and moderate bilateral foraminal stenosis. No fracture. C6-C7: Normal. C7-T1: Normal. Soft tissues are normal. Lung apices are clear. CT/CT cervical spin wo con* [id number] IMPRESSION: 1. No acute cervical spine fracture. 2. Facet joint arthritis and osteophytosis most significant at C4-5 and C5-6 r esulting in central and foraminal stenosis.
--- NOTE | 2024-04-06 12:29 | XR_ITS ---
WS: [id number] Left hip, AP and frog-leg views, 04/06/2024 Clinical Data: fall Comparison: None. Findings: No fractures or dislocations are seen. The left hip shows no erosion, sclerosis, narrowing, cyst form ation or fragmentation of the left femoral head. There are probable uterine fibroid calcifications in the left side of the true pelvis. The soft tissues are not remarkable. The adjacent pelvis is normal . XR/XR hip LT 2-3V wo/w pel* [id number] Impression: Negative left hip. Tonnis classification: grade 0: normal radiographs
--- NOTE | 2024-04-06 12:43 | PC.PHAR ---
Pt takes no current maintenance medications. Pt does have a few tablets left of a pain med and nausea med from a previous issue.
--- NOTE | 2024-04-06 12:52 | ED_ITS ---
HPI - Neck Pain/Injury General: Chief Complaint: Neck Pain/Injury Stated Complaint: fall,hip,knee pain, headache Time Seen by Provider: 04/06/24 12:22 History of Present Illness: 78-year-old female presents following a fall. Patient reports that she was walking down the hallway in the [employer] [facility] when she slipped on some water and fell. Patient reports she did not see the water there after a worker was working up in the ceiling. She is complaining of some generalized bilateral upper neck pain but no focal tenderness in the midline. No numbness or tingling. She also complained of a little bit of left hip pain. She is able to ambulate on it without difficulty. Associated symptoms: Denies difficulty walking, dizziness, headache(s) or nausea Related Data Home Medications Medication Instructions Recorded Confirmed ondansetron HCl 4 mg tablet 4 mg PO Q6H PRN Nausea And Vomiting 04/06/24 04/06/24 oxycodone-acetaminophen 5 mg-325 1 tab PO Q4H PRN Moderate Pain 04/06/24 04/06/24 mg tablet (Scale Score 5-6) Allergies Allergy/AdvReac Type Severity Reaction Status Date / Time aspartame Allergy Unknown Verified 03/03/24 11:58 Review of Systems Const: Denies: fever(s) or chills Card: Denies: chest pain or palpitations Resp: Denies: dyspnea or productive cough GI: Denies: abdominal pain, nausea or vomiting Musc: Reports: neck pain and extremity pain (Left hip) Neuro: Denies: headache(s), numbness in extremities, weakness in extremities, difficulty walking or dizziness PFS ED PFSH: Social History Smoking and tobacco/nicotine status: never used tobacco/nicotine Physical Exam Const: COMMON NORMALS: no acute distress, patient oriented x3, no limitations, healthy appearing and alert HENMT: COMMON NORMALS: normocephalic and atraumatic HEAD & SCALP: normal to inspection, normocephalic and atraumatic Neck/C-Spine: COMMON NORMALS: full ROM and supple CERVICAL SPINE: Yes cervical ROM normal, No Cervical spine tenderness, No step off deformity and Yes Paracervical muscle tenderness Resp: COMMON NORMALS: normal respiratory effort, No retractions and No use of accessory muscles Cardio: COMMON NORMALS: regular rate and regular rhythm RATE: regular rate RHYTHM: regular rhythm Extremity: LEFT LOWER EXTREMITY: Yes hip joint (Mild tenderness able to bear weight) Left hip: Yes palpation and Yes ROM Neuro: COMMON NORMALS: patient oriented x3, moves all extremities, no focal m otor deficits and no sensory deficits noted SENSORIUM/ORIENTATION: Yes alert Psych: COMMON NORMALS: Normal thought process present, cooperative, normal affect and speech normal SPEECH: Yes normal speech THOUGHT PROCESS: Normal thought process present Skin: COMMON NORMALS: no rashes or lesions noted and turgor normal GENERAL SKIN EXAM: no rashes or lesions noted and turgor normal Course Vital Signs: Vital signs: Vital Signs Temperature 98 F 04/06/24 11:59 Pulse Rate 69 04/06/24 12:58 Respiratory Rate 18 04/06/24 11:59 Blood Pressure 131/75 04/06/24 12:58 Pulse Oximetry 98 04/06/24 12:58 Oxygen Delivery Me thod Room Air 04/06/24 12:58 MDM - Neck Pain/Injury Medical Decision Making Patient's imaging was ordered reviewed and shows no acute findings. She does have some arthritic changes in her neck but no acute changes from her fall. Discussed findings with patient. Recommended supportive care. Patient is stable and discharged home Lab Data Radiology Impressions Cervical Spine CT 04/06/24 12:29 IMPRESSION: 1. No acute cervical spine fracture. 2. 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 Hip/Pelvis X-Ray 04/06/24 12:29 Impression: Negative left hip. Tonnis classification: grade 0: normal radiographs All radiology interpretation(s) finalized by discharge Discharge Plan Discharge Patient Disposition: Home Clinical Impression: Fall from slipping on slippery surface, Cervical myofascial strain, Contusion of left hip region Condition: Stable Prescriptions: No Action ondansetron HCl 4 mg tablet 4 mg PO Q6H PRN (Reason: Nausea And Vomiting) oxycodone-acetaminophen 5-325 mg tablet 1 tab PO Q4H PRN (Reason: Moderate Pain (Scale Score 5-6)) Discharge Orders: Discharge ED (Routine); Ordered 04/06/24 Ordered By: Sixto Lennon Referrals: Kelby Euceda DO [Primary Care Provider] - Discharge Diet: Usual diet Discharge Activity: Increase activity as tolerated Patient Instructions: Opioid Safety, Pain Management, Cervical Strain (ED), Contusion Activity Restrictions/Additional Instructions: 4% topical lidocaine with menthol cream or gel use as directed on package as needed for discomfort. Ice for 10 to 15 minutes at a time 3-4 times daily for the next 24 to 36 hours then warm moist heat. Tylenol or ibuprofen as needed for discomfort. Follow with your primary care provider if symptoms or not improving over the next 7 to 10 days. 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
[2024-04-06 12:58] VITALS: BP 131/75; PULSE 69; O2SAT 98
[2024-04-06 14:00] VITALS: BP 134/75; PULSE 70; O2SAT 97
[2024-04-06 14:35] VITALS: BP 136/72; PULSE 69; O2SAT 99
== END 2024-04-06 14:35 | disposition home or self-care (01) ==
PROVIDERS: Emergency Provider Student in an Organized Health Care Education/Training Program; PCP Electrodiagnostic Medicine
DX: S16.1XXA Strain of muscle, fascia and tendon at neck level, initial encounter (principal); S70.02XA Contusion of left hip, initial encounter; W01.0XXA Fall on same level from slipping, tripping and stumbling without subsequent striking against object, initial encounter
CPT/HCPCS: 72125; 73502; 99284

== ENCOUNTER 2024-06-03 08:24 | Oncology outpatient (recurring) (ONCR) | payer MEDICARE, SELFPAY ==
--- NOTE | 2024-06-03 08:30 | US_ITS ---
WS: [id number] US pelvic complete* [id number] HISTORY: uterine mass COMPARISON: 01/14/2024. Patient declined transvaginal pelvic ultrasound due to pain and recent surgery. Uterus: 7.6 cm x 3.3 cm x 2.7 cm. Uterus is normal size. There is a mass along the anterior surface of the uterus measuring 1.9 x 2.4 x 1.8 cm. Mass contains calcifications and is most consistent with a fibroid. This was previously described on the prior study with no increase in size. No additional fibroid or mass identified. Endometrium: 0.4 cm. Limited but unremarkable. Neither ovary is identified. No adnexal masses or fluid. No free fluid in the cul-de-sac. US/US pelvic complete* [id number] IMPRESSION: 1. Only transabdominal ultrasound obtained. 2. Normal appearance of the endometrium. 3. Uterine mass containing calcification measures 1.9 x 2.4 x 1.8 cm. Most con sistent with a fibroid, stable since 01/14/2024. No additional fibroids.
== END 2024-06-27 23:59 | disposition home or self-care (01) ==
LOC: RAD 08:28 → ONCMED 09:48
PROVIDERS: PCP Electrodiagnostic Medicine; Visit Provider Nurse Practitioner
DX: C18.2 Malignant neoplasm of ascending colon (principal); D64.9 Anemia, unspecified; N85.8 Other specified noninflammatory disorders of uterus
CPT/HCPCS: 76856

== ENCOUNTER 2024-09-21 13:43 | Outpatient (RCR) | payer SELFPAY | END 2024-09-26 23:55 | disposition home or self-care (01) | LOC: SPT 13:43 | PROVIDERS: Visit Provider Nurse Practitioner | DX: M54.2 Cervicalgia (principal); M79.10 Myalgia, unspecified site | CPT/HCPCS: 97012; 97161; 97530 ==

== ENCOUNTER 2024-09-27 05:00 | Outpatient (RCR) | payer SELFPAY | END 2024-10-27 23:59 | disposition home or self-care (01) | LOC: SPT 05:00 | PROVIDERS: Visit Provider Nurse Practitioner | DX: M54.2 Cervicalgia (principal); M79.10 Myalgia, unspecified site | CPT/HCPCS: 97012; 97530; G0283 ==

== ENCOUNTER 2024-10-28 05:00 | Outpatient (RCR) | payer SELFPAY | END 2024-11-04 08:01 | disposition home or self-care (01) | LOC: SPT 05:00 | PROVIDERS: Visit Provider Nurse Practitioner | DX: M54.2 Cervicalgia (principal); M79.10 Myalgia, unspecified site | CPT/HCPCS: 97012; 97140; 97530; G0283 ==